=== PATIENT | male | born 1940 | race Caucasian/White ===

== ENCOUNTER 2016-04-07 13:34 | Outpatient (RCR) | payer MEDICARE, OTHER ==
--- OUTSIDE RECORDS SUMMARY | 2016-02-11 09:57 | XMS REPORT | Continuity of Care Document ---
Author Author [facility] Organization [facility] Address Unknown Phone Unavailable Support Name Relationship Address Phone CHARLOTTE BRINK MD Caregiver [address] [place] [address] HARLAN DINH MD Caregiver [address] [place] [address] GABRIELA CLAUDIO Next Of Kin UNKNOWN [address] [phone] Insurance Providers Payer Name Policy Number Subscriber Name Relationship [employer] [id number] Lina Jenkins 19 Self / Same As Patient Self Pay Pending Eliza Apprv [id number] Lina Jenkins 19 Self / Same As Patient Problems No problem information available. Medications No medication information available. Social History Social History Problem Response Recorded Date/Time Recent Foreign Travel No 11/12/2015 1:54pm Hospital Discharge Instructions No hospital discharge instructions. Plan of Care Prescriptions See Medication Section Functional Status No functional status results. Allergies, Adverse Reactions, Alerts No allergy information available. Immunizations No immunization records. Vital Signs No known vital signs results. Results Laboratory Results Test Name Result Units Flags Reference Collection Date/Time Result Date/ Time Comments Blood Urea Nitrogen 10 MG/DL 7-18 12/12/2015 10:52am 12/12/2015 11: 29am Creatinine 1.02 MG/DL 0.60-1.30 12/12/2015 10:52am 12/12/2015 11:29am Procedures No known history of procedures. Encounters Encounter Location Arrival/Admit Date Discharge/Depart Date Attending Provider Discharged Recurring [facility] 02/10/16 9:53am 11:59pm CHARLOTTE BRINK MD
== END 2016-05-11 | disposition home or self-care (01) ==
LOC: ONC 13:34
PROVIDERS: ATTEND Radiology Radiation Oncology
DX: C61 Malignant neoplasm of prostate (principal)
CPT/HCPCS: 36415; 77336; 77385; 84153; 99213

== ENCOUNTER 2016-10-13 15:06 | Outpatient (RCR) | payer MEDICARE, OTHER | END 2016-11-28 | disposition home or self-care (01) | LOC: ONC 15:06 | PROVIDERS: ATTEND Radiology Radiation Oncology | DX: C61 Malignant neoplasm of prostate (principal) | CPT/HCPCS: 84153; 99213 ==